=== PATIENT | male | born 1965 | race Caucasian/White ===

== ENCOUNTER 2016-12-26 14:23 | Emergency (ER) | payer BC ==
[~2016-12-26] VITALS: Ht 188 cm; Wt 99.6 kg
[2016-12-26 14:30] VITALS: BP 135/65; PULSE 86; RESP 16; TEMP 99.3; O2SAT 98
[2016-12-26] MEDS ORDERED: BACT800T5 PO (14:52)
[2016-12-26] MEDS ORDERED: PIPERACIL-TAZO 4.5 GM PREMIX 100 ML IV STA (15:39)
[2016-12-26] MEDS ORDERED: VANCOMYCIN INJ 1,500 MG in SODIUM CHLORID 0.9% 500 ML INJ 500 ML IV STA (15:39)
--- NOTE | 2016-12-26 15:47 | PD ---
HPI Chief Complaint: Skin Problem Time Seen by Provider: 15:28 Travel History International Travel<30 days: No Contact w/Intl Traveler<30days: No Traveled to known affect area: No History of Present Illness HPI This 51-year-old male is complaining of pain and swelling of his right leg. He says that Tuesday he noted some redness and swelling of the leg. He went to urgent care center and was diagnosed with a skin infection. He was given prescription for Bactrim. He has been taking the Bactrim twice daily since then. He has still been active. He has some discomfort in the leg but is not severe. He has been ambulatory. In spite of taking the Bactrim he has developed increased swelling and redness of the leg. He is also noted some tenderness along the medial aspect of the thigh. He has not had fever or chills. He does not have a history of diabetes. He is generally healthy. PFSH Past Medical History Medical History: Denies Significant Hx Immunizations Current: Yes Tetanus Vaccination: Unknown Past Surgical History Other Surgery: Yes (hernia repair as ) Social History Alcohol Use: Yes (occasional) Tobacco Use: No (never) Substance Use: No Allergies-Medications (Allergen,Severity, Reaction): Coded Allergies: No Known Allergies (Unverified , 12/26/16) Reported Meds & Prescriptions Reported Meds & Active Scripts Active Reported Bactrim DS (Sulfamethoxazole-Trimethoprim) 800-160 Mg Tab 1 Tab PO BID Review of Systems General / Constitutional: No: Fever, Chills Eyes: No: Diploplia, Blurred Vision HENT: No: Headaches, Vertigo Cardiovascular: No: Chest Pain or Discomfort, Palpitations Respiratory: No: Cough, Shortness of Breath Gastrointestinal: No: Nausea, Vomiting Genitourinary: No: Frequency Musculoskeletal: No: Myalgias Skin: Positive Rash Neurologic: No: Weakness, Dizziness Hematologic/Lymphatic: No: Easy Bruising Physical Exam Narrative GENERAL: Well-developed male SKIN: Focused skin assessment warm/dry. HEAD: Atraumatic. Normocephalic. EYES: Pupils equal and round. No scleral icterus. No injection or drainage. ENT: No nasal bleeding or discharge. Mucous membranes pink and moist. NECK: Trachea midline. No JVD. CARDIOVASCULAR: Regular rate and rhythm. No murmur appreciated. RESPIRATORY: No accessory muscle use. Clear to auscultation. Breath sounds equal bilaterally. GASTROINTESTINAL: Abdomen soft, non-tender, nondistended. Hepatic and splenic margins not palpable. MUSCULOSKELETAL: No obvious deformities. No clubbing. No cyanosis. On examining the right leg the right lower leg below the knee is erythematous and swollen. There is no palpable cord. He says there is a site anteriorly withered been some serous drainage. Homans sign is negative. NEUROLOGICAL: Awake and alert. No obvious cranial nerve deficits. Motor grossly within normal limits. Normal speech. PSYCHIATRIC: Appropriate mood and affect; insight and judgment normal. Data Data Last Documented VS Vital Signs Date Time Temp Pulse Resp B/P (MAP) Pulse Ox O2 Delivery O2 Flow Rate FiO2 12/26/16 14:30 99.3 86 16 135/65 (88) 98 Orders Orders Us Leg Venous Doppler (12/26/16 15:36) Complete Blood Count With Diff (12/26/16 15:39) Comprehensive Metabolic Panel (12/26/16 15:39) Lactic Acid Sepsis Protocol (12/26/16 15:39) Urinalysis - C+S If Indicated (12/26/16 15:39) Blood Culture (12/26/16 15:39) Iv Access Insert/Monitor (12/26/16 15:39) Piperacil-Tazo 4.5 Gm Premix (Zosyn 4.5 (12/26/16 15:39) Vancomycin Inj (Vancomycin Inj) (12/26/16 15:39) MDM Medical Decision Making Medical Screen Exam Complete: Yes Emergency Medical Condition: Yes Medical Record Reviewed: Yes Differential Diagnosis Differential includes deep vein thrombosis, cellulitis Narrative Course An ultrasound has been ordered to assess for DVT. I have ordered an initial dose of Zosyn and vancomycin. I suspect this represents cellulitis with some lymphangitis. The patient has failed BactOtis Stanley MD Dec 26, 2016 15:47
[2016-12-26 15:59] LABS: AUTOMATED NEUTROPHIL # 6.1 TH/MM3 (1.8-7.7); BASOPHIL % 0.3 % (0.0-2.0); EOSINOPHIL # 0.2 TH/MM3 (0-0.4); EOSINOPHIL % 2.1 % (0.0-4.0); HEMATOCRIT 39.6 % (39.0-51.0); HEMO FLAGS DIFF FINAL; LYMPH % 14.3 % (9.0-44.0); LYMPHOCYTE # 1.2 TH/MM3 (1.0-4.8); MEAN CELL VOLUME 89.5 FL (80.0-100.0); MEAN CORPUSCULAR HGB CONC 35.7 % (32.0-36.0); MONO % 7.1 % (0.0-8.0); NEUT % 76.2 % (16.0-70.0); PLATELET COUNT 197 TH/MM3 (150-450); RED BLOOD COUNT 4.43 MIL/MM3 (4.50-5.90); WHITE BLOOD COUNT 8.1 TH/MM3 (4.0-11.0)
[2016-12-26 16:07] LABS: CHLORIDE 103 MEQ/L (98-107); POTASSIUM 3.9 MEQ/L (3.5-5.1); SODIUM (NA) 137 MEQ/L (136-145)
[2016-12-26 16:11] LABS: ANION GAP 7 MEQ/L (5-15); BICARBONATE 27.5 MEQ/L (21.0-32.0); BLOOD UREA NITROGEN 15 MG/DL (7-18)
[2016-12-26 16:14] LABS: ALT (GPT) 32 U/L (12-78); AST (GOT) 22 U/L (15-37); GLOMERULAR FILTRATION RATE 70 ML/MIN (>89)
[2016-12-26 16:16] LABS: TOTAL BILIRUBIN ADULT 0.5 MG/DL (0.2-1.0)
[2016-12-26 16:17] LABS: ALKALINE PHOSPHATASE 57 U/L (45-117)
--- NOTE | 2016-12-26 16:40 | RADRPT ---
EXAM DATE/TIME: 12/26/2016 16:12 [facility] COMPARISON: No previous studies available for comparison. INDICATIONS : Right leg swelling. MEDICAL HISTORY : Right leg redness. Rigth leg swelling. Right leg tenderness. SURGICAL HISTORY : hernia repair. ENCOUNTER: Initial ACUITY: 3 days PAIN SCORE: 4/10 LOCATION: Right leg. TECHNIQUE: Venous ultrasound of the leg was performed from the inguinal ligament to the proximal calf. Real-sydnee e, color Doppler and spectral tracing, compression and augmentation techniques were used. FINDINGS: There is normal compressibility of the deep venous system from the inguinal region to the proximal ca lf. No echogenic clot is seen in the lumen of the common femoral, femoral, popliteal, and posterior tibial veins. There is a normal response of the venous system to proximal and distal augmentation an d respiration. CONCLUSION: Normal examination. The common femoral veins were difficult to compress I believe due to patient musc ular contraction. There is good color flow and there is no evidence of DVT elsewhere Dino Chamberlain MD on December 26, 2016 at 16:38 Board Certified Radiologist. This report was verified electronically.
[2016-12-26 16:44] LABS: BLOOD, URINE NEG (NEG); GLUCOSE,URINE NEG (NEG); KETONE, URINE NEG (NEG); NITRITE,URINE NEG (NEG)
[2016-12-26 16:47] LABS: METHOD OF COLLECTION CLEAN CATCH; URINE COLOR YELLOW (YELLW/STRAW)
[2016-12-26 16:48] LABS: COMMENT (UR) CULT NOT INDICATED; CULTURE IF INDICATED CULT NOT INDICATED; RBC, URINE 0-3 /hpf (0-3); SQUAMOUS EPITHELIAL CELL URINE 0-5 /hpf (0-5); WBC, URINE 0-2 /hpf (0-5)
[2016-12-26] MEDS ORDERED: DALBAVANCIN INJ 1,500 MG in DEXTROSE 5% IN WATE 500 ML INJ 500 ML IV STA ×2 (16:48)
[2016-12-26] MEDS ORDERED: ASP: No known hypersensitivity to Vanco, Telavancin, Dalbavancin OTHER ONE (17:00)
[2016-12-26] MEDS ORDERED: ASP: Location of Dalbavancin administration OTHER ONE (17:00)
[2016-12-26] MEDS ORDERED: ASP: Only reason for admit - IV antibiotics OTHER ONE (17:00)
[2016-12-26] MEDS ORDERED: MISCELLANEOUS PHARMACY INFORMATION XX ONE (17:00)
[2016-12-26] MEDS ORDERED: ASP: Does not meet inpatient admission criteria OTHER ONE (17:00)
--- NOTE | 2016-12-26 17:39 | PD ---
Physical Exam Narrative Patient signed out to me by Dr. Arroyo. Please see his documentation for complete details. Briefly, patient noticed some redness at the base of his knee on Tuesday. He went to an urgent care where he was prescribed Bactrim. He says he has been taking it twice a day as prescribed, but noticed that the redness and swelling got worse yesterday and today. He denies fever or chills and says it is not hurting him too much. Exam shows erythema and warmth over most of the lower leg and the inside of the right thigh. Pulses intact. Large edema of the right leg. Data Data Last Documented VS Vital Signs Date Time Temp Pulse Resp B/P (MAP) Pulse Ox O2 Delivery O2 Flow Rate FiO2 12/26/16 18:07 84 16 120/72 (88) 96 Room Air 12/26/16 14:30 99.3 Orders Orders Us Leg Venous Doppler (12/26/16 15:36) Complete Blood Count With Diff (12/26/16 15:39) Comprehensive Metabolic Panel (12/26/16 15:39) Lactic Acid Sepsis Protocol (12/26/16 15:39) Urinalysis - C+S If Indicated (12/26/16 15:39) Blood Culture (12/26/16 15:39) Iv Access Insert/Monitor (12/26/16 15:39) Piperacil-Tazo 4.5 Gm Premix (Zosyn 4.5 (12/26/16 15:39) Vancomycin Inj (Vancomycin Inj) (12/26/16 15:39) Asp:No Reaction To Dalbav/Vanc (Asp Crit (12/26/16 17:00) Asp: Does Not Meet Inpt Admit (Asp Crit: (12/26/16 17:00) Asp: Iv Antibiotics Admit Only (Asp Crit (12/26/16 17:00) Asp: Location Of Dalbav Admin (Asp Crit: (12/26/16 17:00) [facility] Information ([facility] (12/26/16 17:00) Dalbavancin Inj (Dalvance Inj) (12/26/16 16:48) Labs Laboratory Tests Test 12/26/16 15:45 12/26/16 16:40 White Blood Count 8.1 TH/MM3 Red Blood Count 4.43 MIL/MM3 Hemoglobin 14.1 GM/DL Hematocrit 39.6 % Mean Corpuscular Volume 89.5 FL Mean Corpuscular Hemoglobin 32.0 PG Mean Corpuscular Hemoglobin Concent 35.7 % Red Cell Distribution Width 12.0 % Platelet Count 197 TH/MM3 Mean Platelet Volume 7.8 FL Neutrophils (%) (Auto) 76.2 % Lymphocytes (%) (Auto) 14.3 % Monocytes (%) (Auto) 7.1 % Eosinophils (%) (Auto) 2.1 % Basophils (%) (Auto) 0.3 % Neutrophils # (Auto) 6.1 TH/MM3 Lymphocytes # (Auto) 1.2 TH/MM3 Monocytes # (Auto) 0.6 TH/MM3 Eosinophils # (Auto) 0.2 TH/MM3 Basophils # (Auto) 0.0 TH/MM3 CBC Comment DIFF FINAL Differential Comment Blood Urea Nitrogen 15 MG/DL Creatinine 1.10 MG/DL Random Glucose 93 MG/DL Total Protein 7.2 GM/DL Albumin 3.8 GM/DL Calcium Level 8.7 MG/DL Alkaline Phosphatase 57 U/L Aspartate Amino Transf (AST/SGOT) 22 U/L Alanine Aminotransferase (ALT/SGPT) 32 U/L Total Bilirubin 0.5 MG/DL Sodium Level 137 MEQ/L Potassium Level 3.9 MEQ/L Chloride Level 103 MEQ/L Carbon Dioxide Level 27.5 MEQ/L Anion Gap 7 MEQ/L Estimat Glomerular Filtration Rate 70 ML/MIN Lactic Acid Level 0.7 mmol/L Urine Collection Type CLEAN CATCH Urine Color YELLOW Urine Turbidity CLEAR Urine pH 6.0 Urine Specific Taylor 1.022 Urine Protein NEG mg/dL Urine Glucose (UA) NEG mg/dL Urine Ketones NEG mg/dL Urine Occult Blood NEG Urine Nitrite NEG Urine Bilirubin NEG Urine Leukocyte Esterase NEG Urine RBC 0-3 /hpf Urine WBC 0-2 /hpf Urine Squamous Epithelial Cells 0-5 /hpf Microscopic Urinalysis Comment CULT NOT INDICATED Urine Collection Time 16:40 MDM Supervised Visit with BECKY: No Narrative Course US shows no evidence of DVT. Labs show no acute abnormalities, WBC count is within normal limits. Vitals are within normal limits. Patient will be given Dalvance. He is given strict return precautions and advised to return for any worsening symptoms or if the cellulitis does not improve over the next few days. He and his are comfortable with this plan. Diagnosis Primary Impression: Cellulitis of leg Qualified Codes: L03.115 - Cellulitis of right lower limb Patient Instructions: Cellulitis (ED), General Instructions Additional Instruction: Return if the redness or swelling worsen at any time. Return if you are feeling worse. Return if the symptoms to not begin to improve over the next few days. Follow up with a primary care doctor. Take Tylenol or Ibuprofen as needed for pain. Disposition: 01 DISCHARGE HOME Condition: Stable Mariana Bell MD Dec 26, 2016 17:39
[2016-12-26 18:07] VITALS: BP 120/72; PULSE 84; RESP 16; O2SAT 96
[2016-12-26 19:09] VITALS: BP 125/78; TEMP 98.1
== END 2016-12-26 19:19 | disposition home or self-care (01) ==
LOC: PHED 14:23
DX: L03.115 Cellulitis of right lower limb (principal)
CPT/HCPCS: 80053; 81001; 83605; 85025; 87040; 93971; 96365; 99285; J0875; J7060

== ENCOUNTER 2016-12-28 22:42 | Inpatient (IN) | payer BC ==
[~2016-12-28] VITALS: Ht 188 cm; Wt 97.3 kg
[~2016-12-28 22:42] MED LIST: BACT800T5 PO
[2016-12-28 22:46] VITALS: BP 132/73; PULSE 91; RESP 18; TEMP 99.1; O2SAT 95
[2016-12-29] VITALS (8 sets, daily range): BP systolic 119–153; BP diastolic 70–92; PULSE 72–83; RESP 20; TEMP 97.8–98.3; O2SAT 93–98
[2016-12-29 02:34] LABS: AUTOMATED NEUTROPHIL # 4.1 TH/MM3 (1.8-7.7); BASOPHIL % 0.4 % (0.0-2.0); EOSINOPHIL # 0.2 TH/MM3 (0-0.4); EOSINOPHIL % 3.5 % (0.0-4.0); HEMATOCRIT 39.9 % (39.0-51.0); HEMO FLAGS DIFF FINAL; LYMPHOCYTE # 1.7 TH/MM3 (1.0-4.8); MEAN CELL VOLUME 90.7 FL (80.0-100.0); MEAN CORPUSCULAR HEMOGLOBIN 31.2 PG (27.0-34.0); MEAN CORPUSCULAR HGB CONC 34.4 % (32.0-36.0); MONO % 9.9 % (0.0-8.0); NEUT % 61.2 % (16.0-70.0); PLATELET COUNT 258 TH/MM3 (150-450); RED CELL DISTRIBUTION WIDTH 12.2 % (11.6-17.2); WHITE BLOOD COUNT 6.7 TH/MM3 (4.0-11.0)
[2016-12-29 02:54] LABS: POTASSIUM 3.5 MEQ/L (3.5-5.1)
[2016-12-29 02:57] LABS: BICARBONATE 30.6 MEQ/L (21.0-32.0)
--- NOTE | 2016-12-29 03:10 | RADRPT ---
EXAM DATE/TIME: 12/29/2016 02:23 [facility] COMPARISON: No previous studies available for comparison. INDICATIONS : Right lower leg pain and swelling. MEDICAL HISTORY : None. SURGICAL HISTORY : None. ENCOUNTER: Initial ACUITY: 1 week PAIN SCORE: 6/10 LOCATION: Right lower leg. FINDINGS: Soft tissues of the right leg appear diffusely swollen and edematous. No radiopaque foreign body. No acute fracture or subluxation. CONCLUSION: Nonspecific soft tissue swelling without an acute bony abnormality. Gavin Hart MD on December 29, 2016 at 3:08 Board Certified Radiologist. This report was verified electronically.
[2016-12-29] MEDS ORDERED: VANCOMYCIN INJ 1,500 MG in SODIUM CHLORID 0.9% 500 ML INJ 500 ML IV ONE (04:15)
[2016-12-29] MEDS ORDERED: NALOXONE HCL 0.4 MG/ML AMP IV PUSH PRN (04:15)
[2016-12-29] MEDS ORDERED: Vancomycin Consult Pharmacy 1 EA OTHER SCH ×2 (04:15→08:45)
[2016-12-29] MEDS ORDERED: SODIUM CHLORIDE 0.9% FLUSH 10 ML FLUSH IV FLUSH PRN (04:15)
[2016-12-29] MEDS ORDERED: PIPERACIL-TAZO 4.5 GM PREMIX 100 ML IV ONE (04:15)
--- NOTE | 2016-12-29 04:19 | PD ---
HPI Chief Complaint: Skin Problem Time Seen by Provider: 02:04 Travel History International Travel<30 days: No Contact w/Intl Traveler<30days: No Traveled to known affect area: No History of Present Illness HPI 51-year-old male presents to the emergency department by private transportation for complaint of painful swelling below his right knee. Patient started out with area of possible pimple went to urgent care was started on antibiotic Bactrim should brief episode of improvement and started to have worsening of symptoms. Patient was seen in the emergency department and given dalvance but since then has continued to have no improvement has developed shaking chills and worsening erythema and swelling. Patient denies diabetes. Patient presents due to failed outpatient therapy and worsening symptoms. Patient is unable to identify exacerbating or alleviating factors. Patient estimates pain is 5/10 in intensity. PFSH Past Medical History Narrative Medical Immunizations current, herniorrhaphy, no tobacco use; nursing notes reviewed Medical History: Denies Significant Hx Diminished Hearing: No Immunizations Current: Yes Tetanus Vaccination: Unknown Influenza Vaccination: No Past Surgical History Other Surgery: Yes (hernia repair as ) Social History Alcohol Use: Yes (occasional) Tobacco Use: No (never) Substance Use: No Allergies-Medications (Allergen,Severity, Reaction): Coded Allergies: No Known Allergies (Unverified , 12/28/16) Reported Meds & Prescriptions Reported Meds & Active Scripts Active Review of Systems Except as stated in HPI: all other systems reviewed are Neg Physical Exam Narrative GENERAL: Well-developed well-nourished male in no acute distress no respiratory distress SKIN: Warm and dry. HEAD: Normocephalic. EYES: No scleral icterus. No injection or drainage. NECK: Supple, trachea midline. No JVD or lymphadenopathy. CARDIOVASCULAR: Regular rate and rhythm without murmurs, gallops, or rubs. RESPIRATORY: Breath sounds equal bilaterally. No accessory muscle use. GASTROINTESTINAL: Abdomen soft, non-tender, nondistended. MUSCULOSKELETAL: No cyanosis, or edema. Attention right lower extremity just overlying the tibial tuberosity and distally there is no area of erythema with superficial pustule no fluctuance no ascending erythema no knee joint pain no ballotable effusion no ascending erythema no right groin lymphadenopathy distally extremity service tendon intact BACK: Nontender without obvious deformity. No CVA tenderness. Data Data Last Documented VS Orders Orders Basic Metabolic Panel (Bmp) (12/29/16 02:04) Complete Blood Count With Diff (12/29/16 02:04) Blood Culture (12/29/16 02:04) Wound Culture And Gram Stain (12/29/16 02:04) Iv Access Insert/Monitor (12/29/16 02:04) Lactic Acid (12/29/16 02:04) Tibia/Fibula (Ap/Lat) (12/29/16 ) Vancomycin Inj (Vancomycin Inj) (12/29/16 04:15) Piperacil-Tazo 4.5 Gm Premix (Zosyn 4.5 (12/29/16 04:15) Admit To Inpatient (12/29/16 ) Vital Signs (Adult) Q4H (12/29/16 04:14) Activity Oob With Assistance (12/29/16 04:14) Electrical Design Engineer / Telemetry .CONTINUOUS (12/29/16 04:14) Diet Heart Healthy (12/29/16 Breakfast) Sodium Chloride 0.9% Flush (Ns Flush) (12/29/16 04:15) Sodium Chloride 0.9% Flush (Ns Flush) (12/29/16 09:00) Basic Metabolic Panel (Bmp) (12/30/16 06:00) Complete Blood Count With Diff (12/30/16 06:00) Case Management Consult (12/29/16 04:14) Naloxone Inj (Narcan Inj) (12/29/16 04:15) Inpatient Certification (12/29/16 ) Consult Infectious Disease (12/29/16 ) Vancomycin Consult Pharmacy (Vancomycin (12/29/16 04:15) Piperacil-Tazo 4.5 Gm Premix (Zosyn 4.5 (12/29/16 12:00) Admit Order (Ed Use Only) (12/29/16 ) ^ Saline Lock (12/29/16 04:17) Resp Oxygen Kevin C Titrat 1-4 L (12/29/16 ) Notify Dr: Other (12/29/16 04:17) Sodium Chloride 0.9% Flush (Ns Flush) (12/29/16 09:00) Sodium Chloride 0.9% Flush (Ns Flush) (12/29/16 04:30) Labs Laboratory Tests Test 12/29/16 02:20 White Blood Count 6.7 TH/MM3 Red Blood Count 4.40 MIL/MM3 Hemoglobin 13.7 GM/DL Hematocrit 39.9 % Mean Corpuscular Volume 90.7 FL Mean Corpuscular Hemoglobin 31.2 PG Mean Corpuscular Hemoglobin Concent 34.4 % Red Cell Distribution Width 12.2 % Platelet Count 258 TH/MM3 Mean Platelet Volume 7.2 FL Neutrophils (%) (Auto) 61.2 % Lymphocytes (%) (Auto) 25.0 % Monocytes (%) (Auto) 9.9 % Eosinophils (%) (Auto) 3.5 % Basophils (%) (Auto) 0.4 % Neutrophils # (Auto) 4.1 TH/MM3 Lymphocytes # (Auto) 1.7 TH/MM3 Monocytes # (Auto) 0.7 TH/MM3 Eosinophils # (Auto) 0.2 TH/MM3 Basophils # (Auto) 0.0 TH/MM3 CBC Comment DIFF FINAL Differential Comment Blood Urea Nitrogen 21 MG/DL Creatinine 1.00 MG/DL Random Glucose 102 MG/DL Calcium Level 9.2 MG/DL Sodium Level 138 MEQ/L Potassium Level 3.5 MEQ/L Chloride Level 102 MEQ/L Carbon Dioxide Level 30.6 MEQ/L Anion Gap 5 MEQ/L Estimat Glomerular Filtration Rate 78 ML/MIN Lactic Acid Level 0.6 mmol/L C-Reactive Protein 3.50 MG/DL MDM Medical Decision Making Medical Screen Exam Complete: Yes Emergency Medical Condition: Yes Medical Record Reviewed: Yes Interpretation(s) Last Impressions Tibia/Fibula X-Ray 12/29/16 0000 Signed Impressions: Service Date/Time: Thursday, December 29, 2016 02:23 - CONCLUSION: Nonspecific soft tissue swelling without an acute bony abnormality. Gavin aHrt MD CBC & BMP Diagram 12/29/16 02:20 Calcium Level 9.2 Differential Diagnosis Cellulitis, abscess, failed outpatient therapy, osteomyelitis; no septic arthritis no necrotizing fasciitis Narrative Course IV access obtained specimens collected and sent for resulting IV antibiotics administered x-ray of the lower extremity performed X-ray reveals no acute abnormality no acute bony abnormalities Patient is feel outpatient therapy and will be admitted for ongoing IV antibiotics Patient agreeable to plan discussed with on-call [facility] Physician Communication Physician Communication discussed with Dr Ceballos --admit will obtain ID consult Diagnosis Primary Impression: Cellulitis of right lower extremity Additional Impression: Failure of outpatient treatment Admitting Information Admitting Physician Requests: Admit Scripts Doxycycline Hyclate (Doxycycline Hyclate) 100 Mg Cap 100 MG PO BID for Infection, #20 CAP 0 Refills Prov: Kailey Marshall MD 12/31/16 Joan Page MD Dec 29, 2016 04:18
[2016-12-29] MEDS ORDERED: SODIUM CHLORIDE 0.9% FLUSH 10 ML FLUSH IVF PRN (04:30)
[2016-12-29] MEDS ORDERED: SODIUM CHLORIDE 0.9% FLUSH 10 ML FLUSH IV FLUSH SCH (09:00)
[2016-12-29] MEDS: SODIUM CHLORIDE 0.9% FLUSH 10 ML FLUSH IV FLUSH SCH ×2 (09:28→20:28)
--- NOTE | 2016-12-29 11:45 | HHI.HP ---
[facility] No Primary Care Physician Admission Diagnosis RLE cellulitis Diagnoses: (1) Cellulitis of right lower extremity (2) Failure of outpatient treatment Travel History International Travel<30 Days: No Contact w/Intl Traveler <30 Da: No Traveled to Known Affected Are: No History of Present Illness This is a pleasant 51-year-old male with no significant past medical history who one week ago noticed a painful pimple below his right knee. The area started to grow in size and was associated with erythema. He went to an urgent care where they prescribed Bactrim. Initially improved but then the erythema started to worsen. He presented to an emergency department 5 days ago where he states he received a shot dalbavancin. That evening he started to develop shaking chills. The next day the pimple started to drain fluid. Yesterday he started to develop erythema and swelling of his leg and spreading up towards his medial thigh so he presented to the emergency department. He denies any fevers. Denies any sick contacts. Denies any injuries. He states he used to get abscesses when he was a child. Review of Systems Constitutional: DENIES: Fever, Chills Respiratory: DENIES: Cough, Shortness of breath Cardiovascular: DENIES: Chest pain, Palpitations Gastrointestinal: DENIES: Abdominal pain, Vomiting Genitourinary: DENIES: Urgency, Dysuria Musculoskeletal: DENIES: Back pain, Neck pain Integumentary: DENIES: Pruritus Hematologic/lymphatic: DENIES: Lymphadenopathy Neurologic: DENIES: Abnormal gait, Headache Psychiatric: DENIES: Anxiety, Confusion Past Family Social History Past Medical History None Allergies: Coded Allergies: No Known Allergies (Unverified , 12/28/16) Family History Reviewed and noncontributory Social History No alcohol tobacco or drug use Physical Exam Vital Signs Vital Signs Date Time Temp Pulse Resp B/P (MAP) Pulse Ox O2 Delivery O2 Flow Rate FiO2 12/29/16 08:06 98.1 73 20 130/92 (105) 95 12/29/16 07:38 76 18 119/70 (86) 98 12/29/16 06:00 98.3 72 20 153/89 (110) 98 12/29/16 02:48 20 12/28/16 22:46 99.1 91 18 132/73 (92) 95 12/28/16 22:46 95 21 Physical Exam GENERAL: Well-nourished, well-developed middle-aged male patient. SKIN: Warm and dry. HEAD: Normocephalic. EYES: No scleral icterus. No injection or drainage. NECK: Supple, trachea midline. No JVD or lymphadenopathy. CARDIOVASCULAR: Regular rate and rhythm without murmurs, gallops, or rubs. RESPIRATORY: Breath sounds equal bilaterally. No accessory muscle use. GASTROINTESTINAL: Abdomen soft, non-tender, nondistended. EXTREMITIES: Patient has a resolving abscess inferior to the right knee with minimal surrounding erythema with mild induration and no fluctuance, trace edema of the right lower extremity. NEUROLOGICAL: Awake, alert, and oriented x 3. Non-focal. Laboratory Laboratory Tests Test 12/29/16 02:20 White Blood Count 6.7 Red Blood Count 4.40 Hemoglobin 13.7 Hematocrit 39.9 Mean Corpuscular Volume 90.7 Mean Corpuscular Hemoglobin 31.2 Mean Corpuscular Hemoglobin Concent 34.4 Red Cell Distribution Width 12.2 Platelet Count 258 Mean Platelet Volume 7.2 Neutrophils (%) (Auto) 61.2 Lymphocytes (%) (Auto) 25.0 Monocytes (%) (Auto) 9.9 Eosinophils (%) (Auto) 3.5 Basophils (%) (Auto) 0.4 Neutrophils # (Auto) 4.1 Lymphocytes # (Auto) 1.7 Monocytes # (Auto) 0.7 Eosinophils # (Auto) 0.2 Basophils # (Auto) 0.0 CBC Comment DIFF FINAL Differential Comment Blood Urea Nitrogen 21 Creatinine 1.00 Random Glucose 102 Calcium Level 9.2 Sodium Level 138 Potassium Level 3.5 Chloride Level 102 Carbon Dioxide Level 30.6 Anion Gap 5 Estimat Glomerular Filtration Rate 78 Lactic Acid Level 0.6 Date/Time Source Procedure Growth Status 12/29/16 02:20 Blood Peripheral Aerobic Blood Culture Pending Received 12/29/16 02:20 Blood Peripheral Anaerobic Blood Culture Pending Received 12/29/16 02:35 Wound Knee Gram Stain Pending Received 12/29/16 02:35 Wound Knee Wound Culture Pending Received Result Diagram: 12/29/160 12/29/16 0220 Imaging Last Impressions Tibia/Fibula X-Ray 12/29/16 0000 Signed Impressions: Service Date/Time: Thursday, December 29, 2016 02:23 - CONCLUSION: Nonspecific soft tissue swelling without an acute bony abnormality. MD Hans Spivey VTE Risk Assessment Hans VTE Risk Assessment: No/Low Risk (score <= 1) Caprini Risk Assessment Model Point Value = 1 Point Value = 2 Point Value = 3 Point Value = 5 Age 41-60 Minor surgery BMI > 25 kg/m2 Swollen legs Varicose veins or History of unexplained or recurrent spontaneous Oral contraceptives or hormone replacement Sepsis (< 1 month) Serious lung disease, including pneumonia (< 1 month) Abnormal pulmonary function Acute myocardial infarction Congestive heart failure (< 1 month) History of inflammatory bowel disease Medical patient at bed rest Age 61-74 Arthroscopic surgery Major open surgery (> 45 min) Laparoscopic surgery (> 45 min) Malignancy Confined to bed (> 72 hours) Immobilizing plaster cast Central venous access Age >= 75 History of VTE Family history of VTE Factor V Leiden Prothrombin [id number] Lupus anticoagulant Anticardiolipin antibodies Elevated serum homocysteine Heparin-induced thrombocytopenia Other congenital or acquired thrombophilia Stroke (< 1 month) Elective arthroplasty Hip, pelvis, or leg fracture Acute spinal cord injury (< 1 month) Prophylaxis Regimen Total Risk Factor Score Risk Level Prophylaxis Regimen 0-1 Low Early ambulation 2 Moderate Order ONE of the following: *Sequential Compression Device (SCD) *Heparin 5000 units SQ BID 3-4 Higher Order ONE of the following medications: *Heparin 5000 units SQ TID *Enoxaparin/Lovenox 40 mg SQ daily (WT < 150 kg, CrCl > 30 mL/min) *Enoxaparin/Lovenox 30 mg SQ daily (WT < 150 kg, CrCl > 10-29 mL/min) *Enoxaparin/Lovenox 30 mg SQ BID (WT < 150 kg, CrCl > 30 mL/min) AND/OR *Sequential Compression Device (SCD) 5 or more Highest Order ONE of the following medications: *Heparin 5000 units SQ TID (Preferred with Epidurals) *Enoxaparin/Lovenox 40 mg SQ daily (WT < 150 kg, CrCl > 30 mL/min) *Enoxaparin/Lovenox 30 mg SQ daily (WT < 150 kg, CrCl > 10-29 mL/min) *Enoxaparin/Lovenox 30 mg SQ BID (WT < 150 kg, CrCl > 30 mL/min) AND *Sequential Compression Device (SCD) Assessment and Plan Assessment and Plan -Abscess and cellulitis of the pretibial area of the right lower extremity. Does not appear to involve the joint he has full range of motion. He did fail outpatient treatment with Bactrim and dalbavancin. He is now admitted for IV antibiotics with vancomycin and ampicillin. Infectious disease is following. The abscess appears to be resolving and not in need of incision and drainage at this time however the site will be monitored. -DVT prophylaxis with ambulation Kailey Marshall MD Dec 29, 2016 11:45
[2016-12-29] MEDS ORDERED: PIPERACIL-TAZO 4.5 GM PREMIX 100 ML IV SCH (12:00)
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
[2016-12-29] MEDS: AMPICILLIN-SULBACTAM INJ 3 GM in SODIUM CHLORIDE 0.9% INJ 100 ML IV SCH ×2 (13:07→18:32)
[2016-12-29] MEDS: VANCOMYCIN INJ 1,750 MG in SODIUM CHLORID 0.9% 500 ML INJ 500 ML IV SCH (16:00)
[2016-12-30] VITALS: BP 135/73; PULSE 71; RESP 20; TEMP 97.5; O2SAT 95
[2016-12-30] MEDS: AMPICILLIN-SULBACTAM INJ 3 GM in SODIUM CHLORIDE 0.9% INJ 100 ML IV SCH ×4 (00:14→18:15)
[2016-12-30] MEDS: VANCOMYCIN INJ 1,750 MG in SODIUM CHLORID 0.9% 500 ML INJ 500 ML IV SCH ×2 (04:35→16:06)
[2016-12-30 05:28] LABS: BASOPHIL % 0.2 % (0.0-2.0); EOSINOPHIL # 0.3 TH/MM3 (0-0.4); EOSINOPHIL % 3.9 % (0.0-4.0); HEMO FLAGS DIFF FINAL; LYMPH % 20.4 % (9.0-44.0); LYMPHOCYTE # 1.5 TH/MM3 (1.0-4.8); MEAN CELL VOLUME 90.1 FL (80.0-100.0); MEAN CORPUSCULAR HEMOGLOBIN 31.3 PG (27.0-34.0); MEAN CORPUSCULAR HGB CONC 34.7 % (32.0-36.0); MONO % 8.1 % (0.0-8.0); NEUT % 67.4 % (16.0-70.0); PLATELET COUNT 249 TH/MM3 (150-450); RED BLOOD COUNT 4.43 MIL/MM3 (4.50-5.90); RED CELL DISTRIBUTION WIDTH 11.8 % (11.6-17.2); WHITE BLOOD COUNT 7.4 TH/MM3 (4.0-11.0)
[2016-12-30 08:00] VITALS: BP 124/82; PULSE 74; RESP 18; TEMP 97.1; O2SAT 97
[2016-12-30] MEDS: SODIUM CHLORIDE 0.9% FLUSH 10 ML FLUSH IV FLUSH SCH ×2 (09:08→21:00)
[2016-12-30 12:00] VITALS: BP 120/76; PULSE 77; RESP 18; TEMP 98.2; O2SAT 96
--- NOTE | 2016-12-30 13:13 | HHI.PR ---
Subjective Remarks Patient states his knee feels better, no fever or chills. He notices enlarging blister on his right knee. Objective Vitals Vital Signs Date Time Temp Pulse Resp B/P (MAP) Pulse Ox O2 Delivery O2 Flow Rate FiO2 12/30/16 12:00 98.2 77 18 120/76 (91) 96 12/30/16 08:00 97.1 74 18 124/82 (96) 97 12/30/16 00:00 97.5 71 20 135/73 (93) 95 12/29/16 21:18 96 21 12/29/16 20:00 97.8 83 20 128/85 (99) 96 12/29/16 16:00 98.3 81 20 126/82 (97) 94 I/O 12/29/16 12/29/16 12/29/16 12/30/16 12/30/16 12/30/16 07:00 15:00 23:00 07:00 15:00 23:00 Intake Total 100 ml 600 ml 1515 ml 556 ml Balance 100 ml 600 ml 1515 ml 556 ml Intake Oral 1000 ml IV Total 100 ml 600 ml 515 ml 556 ml # Voids 5 # Bowel Movements 0 Result Diagram: 12/30/16 0450 12/30/16 045 Objective Remarks GENERAL: Well-nourished, well-developed middle-aged male patient. SKIN: Warm and dry. HEAD: Normocephalic. EYES: No scleral icterus. No injection or drainage. NECK: Supple, trachea midline. No JVD or lymphadenopathy. CARDIOVASCULAR: Regular rate and rhythm without murmurs, gallops, or rubs. RESPIRATORY: Breath sounds equal bilaterally. No accessory muscle use. GASTROINTESTINAL: Abdomen soft, non-tender, nondistended. EXTREMITIES: Patient has a resolving abscess inferior to the right knee with minimal surrounding erythema with mild induration there is now a 2 x 2 centimeter fluid-filled blister, edema of the lower extremity has resolved. NEUROLOGICAL: Awake, alert, and oriented x 3. Non-focal. A/P Problem List: (1) Cellulitis of right lower extremity ICD Code: L03.115 - Cellulitis of right lower limb Status: Acute (2) Failure of outpatient treatment ICD Code: Z78.9 - Other specified health status Status: Acute Assessment and Plan -Abscess and cellulitis of the pretibial area of the right lower extremity. Does not appear to involve the joint he has full range of motion. He did fail outpatient treatment with Bactrim and dalbavancin. He is now admitted for IV antibiotics with vancomycin and ampicillin. Infectious disease is following. He has a small pus filled blister over the right knee which he is requesting to be divided. Lidocaine and an abscess I&D kit ordered to bedside. -DVT prophylaxis with ambulation Kialey Marshall MD Dec 30, 2016 13:13
[2016-12-30] MEDS ORDERED: LIDOCAINE HCL 1% 50 ML VIAL INFIL ONE (14:00)
[2016-12-30] MEDS ORDERED: PHARMACY ORDERED LAB ONE (15:45)
[2016-12-30 16:00] VITALS: BP 136/80; PULSE 91; RESP 18; TEMP 98.3; O2SAT 95
[2016-12-30] MEDS ORDERED: PIPERACILLIN/TAZ 2.25 GM VIAL 2.25 GM in SODIUM CHLORIDE 0.9% INJ 50 ML IV ONE (18:00)
[2016-12-30] MEDS ORDERED: PIPERACILLIN/TAZ 3.375 GM VIAL 3.375 GM in SODIUM CHLORIDE 0.9% INJ 50 ML IV ONE (18:00)
[2016-12-30 20:00] VITALS: BP 123/82; PULSE 87; RESP 20; TEMP 98.2; O2SAT 95
[2016-12-31] VITALS: BP 115/75; PULSE 73; RESP 18; TEMP 98; O2SAT 94
[2016-12-31] MEDS: AMPICILLIN-SULBACTAM INJ 3 GM in SODIUM CHLORIDE 0.9% INJ 100 ML IV SCH ×2 (00:02→06:32)
[2016-12-31] MEDS: VANCOMYCIN INJ 1,750 MG in SODIUM CHLORID 0.9% 500 ML INJ 500 ML IV SCH (03:54)
[2016-12-31 04:00] VITALS: BP 126/78; PULSE 73; RESP 20; TEMP 98.3; O2SAT 93
[2016-12-31] MEDS: SODIUM CHLORIDE 0.9% FLUSH 10 ML FLUSH IV FLUSH SCH (07:59)
[2016-12-31 08:00] VITALS: BP 135/88; PULSE 73; RESP 16; TEMP 97.2; O2SAT 93
--- NOTE | 2016-12-31 10:15 | HHI.IDPN ---
Subjective Subjective Remarks S/p I & D of rt anterior knee abscess No fevers No pain Leg is better Antibiotics IV Vancomycin and Unasyn Lines Peripheral Past Medical History None significant Past Surgical History None Allergies: Coded Allergies: No Known Allergies (Unverified , 12/28/16) Review of Systems Constitutional Constitutional Remarks No fever, chills Objective . Vital Signs Date Time Temp Pulse Resp B/P (MAP) Pulse Ox O2 Delivery O2 Flow Rate FiO2 12/31/16 08:00 97.2 73 16 135/88 (104) 93 12/31/16 04:00 98.3 73 20 126/78 (94) 93 12/31/16 00:00 98.0 73 18 115/75 (88) 94 12/30/16 20:00 98.2 87 20 123/82 (96) 95 12/30/16 16:00 98.3 91 18 136/80 (98) 95 12/30/16 12:00 98.2 77 18 120/76 (91) 96 . Laboratory Tests Test 12/30/16 04:50 White Blood Count 7.4 TH/MM3 Red Blood Count 4.43 MIL/MM3 Hemoglobin 13.9 GM/DL Hematocrit 40.0 % Mean Corpuscular Volume 90.1 FL Mean Corpuscular Hemoglobin 31.3 PG Mean Corpuscular Hemoglobin Concent 34.7 % Red Cell Distribution Width 11.8 % Platelet Count 249 TH/MM3 Mean Platelet Volume 7.1 FL Neutrophils (%) (Auto) 67.4 % Lymphocytes (%) (Auto) 20.4 % Monocytes (%) (Auto) 8.1 % Eosinophils (%) (Auto) 3.9 % Basophils (%) (Auto) 0.2 % Neutrophils # (Auto) 5.0 TH/MM3 Lymphocytes # (Auto) 1.5 TH/MM3 Monocytes # (Auto) 0.6 TH/MM3 Eosinophils # (Auto) 0.3 TH/MM3 Basophils # (Auto) 0.0 TH/MM3 CBC Comment DIFF FINAL Differential Comment Laboratory Tests Test 12/30/16 04:50 Blood Urea Nitrogen 13 MG/DL Creatinine 0.92 MG/DL Random Glucose 121 MG/DL Calcium Level 8.5 MG/DL Sodium Level 141 MEQ/L Potassium Level 4.0 MEQ/L Chloride Level 105 MEQ/L Carbon Dioxide Level 30.0 MEQ/L Anion Gap 6 MEQ/L Estimat Glomerular Filtration Rate 86 ML/MIN Microbiology Date/Time Source Procedure Growth Status 12/29/16 02:20 Blood Peripheral Aerobic Blood Culture - Preliminary NO GROWTH IN 1 DAY Resulted 12/29/16 02:20 Blood Peripheral Anaerobic Blood Culture - Preliminary NO GROWTH IN 1 DAY Resulted 12/29/16 02:10 Blood Peripheral Aerobic Blood Culture - Preliminary NO GROWTH IN 1 DAY Resulted 12/29/16 02:10 Blood Peripheral Anaerobic Blood Culture - Preliminary NO GROWTH IN 1 DAY Resulted 12/29/16 02:35 Wound Knee Gram Stain - Final Resulted 12/29/16 02:35 Wound Culture - Preliminary Staphylococcus Aureus Resulted Physical Exam GENERAL: This is a well-nourished, well-developed patient, in no apparent distress. SKIN: Erythema localized around drained abscess. Anterior knee - a 1 1/2 inch lesion which is eccymotic with incision and some bloody drainage HEAD: Atraumatic. Normocephalic. No temporal or scalp tenderness. EYES: Pupils equal round and reactive. Extraocular motions intact. No scleral icterus. No injection or drainage. ENT: Nose without bleeding, purulent drainage or septal hematoma. Throat without erythema, tonsillar hypertrophy or exudate. Uvula midline. Airway patent. NECK: Trachea midline. No JVD or lymphadenopathy. Supple, nontender, no meningeal signs. CARDIOVASCULAR: Regular rate and rhythm without murmurs, gallops, or rubs. RESPIRATORY: Clear to auscultation. Breath sounds equal bilaterally. No wheezes , rales, or rhonchi. GASTROINTESTINAL: Abdomen soft, non-tender, nondistended. No hepato-splenomegaly , or palpable masses. No guarding. MUSCULOSKELETAL: Rt leg cellulitis resolved on thigh - and ankle a NEUROLOGICAL: Awake and alert. Cranial nerves II through XII intact. Motor and sensory grossly within normal limits. Five out of 5 muscle strength in all muscle groups. Assessment & Plan Diagnosis: (1) Cellulitis of right lower extremity ICD Codes: L03.115 - Cellulitis of right lower limb Status: Acute Plan: Abscess had I & D Wound culture with Staph aureus Clinically improved Depending on susceptibility - patient can be changed to PO antibiotics and discharged today (2) Failure of outpatient treatment ICD Codes: Z78.9 - Other specified health status Status: Acute Rossy Del Cid MD Dec 31, 2016 10:15
[2016-12-31] MEDS ORDERED: DOXY100C PO (11:18)
--- NOTE | 2016-12-31 11:25 | HHI.DS ---
Discharge Summary Admission Date Dec 29, 2016 at 04:18 Discharge Date: Dec 31, 2016 Admitting Diagnosis RLE cellulitis (1) Cellulitis of right lower extremity ICD Code: L03.115 - Cellulitis of right lower limb Status: Acute (2) Failure of outpatient treatment ICD Code: Z78.9 - Other specified health status Status: Acute Procedures I&D of small abscess right pretibial area Brief History - From Admission This is a pleasant 51-year-old male with no significant past medical history who one week ago noticed a painful pimple below his right knee. The area started to grow in size and was associated with erythema. He went to an urgent care where they prescribed Bactrim. Initially improved but then the erythema started to worsen. He presented to an emergency department 5 days ago where he states he received a shot dalbavancin. That evening he started to develop shaking chills. The next day the pimple started to drain fluid. Yesterday he started to develop erythema and swelling of his leg and spreading up towards his medial thigh so he presented to the emergency department. He denies any fevers. Denies any sick contacts. Denies any injuries. He states he used to get abscesses when he was a child. CBC/BMP: 12/30/16 0450 12/30/16 0450 Significant Findings Laboratory Tests Test 12/29/16 02:20 12/30/16 04:50 12/30/16 15:55 Red Blood Count 4.40 MIL/MM3 (4.50-5.90) 4.43 MIL/MM3 (4.50-5.90) Monocytes (%) (Auto) 9.9 % (0.0-8.0) 8.1 % (0.0-8.0) Blood Urea Nitrogen 21 MG/DL (7-18) Estimat Glomerular Filtration Rate 78 ML/MIN (>89) 86 ML/MIN (>89) C-Reactive Protein 3.50 MG/DL (0.00-0.30) Random Glucose 121 MG/DL (74-106) Vancomycin Level Trough 14.3 MCG/ML (5.0-10.0) PE at Discharge GENERAL: Well-nourished, well-developed middle-aged male patient. SKIN: Warm and dry. HEAD: Normocephalic. EYES: No scleral icterus. No injection or drainage. NECK: Supple, trachea midline. No JVD or lymphadenopathy. CARDIOVASCULAR: Regular rate and rhythm without murmurs, gallops, or rubs. RESPIRATORY: Breath sounds equal bilaterally. No accessory muscle use. GASTROINTESTINAL: Abdomen soft, non-tender, nondistended. EXTREMITIES: Patient has a resolving abscess inferior to the right knee with minimal surrounding erythema with mild induration there is now a 2 x 2 centimeter fluid-filled blister, edema of the lower extremity has resolved. NEUROLOGICAL: Awake, alert, and oriented x 3. Non-focal. Hospital Course -Abscess and cellulitis of the pretibial area of the right lower extremity. much improved. underwent I&D of small abscess/blister on 12/30. cultures +staph aureus sensitive to doxycycline. appreciate ID input. DC home with PO doxycyline today. Pt Condition on Discharge: Stable Discharge Disposition: Discharge Home Discharge Time: <= 30 minutes Discharge Instructions DIET: Follow Instructions for: As Tolerated, No Restrictions Activities you can perform: Regular-No Restrictions Follow up Referrals: PCP Follow-up - 1 Week New Medications: Doxycycline Hyclate (Doxycycline Hyclate) 100 Mg Cap 100 MG PO BID for Infection, #20 CAP 0 Refills Kailey Marshall MD Dec 31, 2016 11:25
[2016-12-31 11:32] VITALS: BP 118/78; PULSE 83; RESP 16; TEMP 96.4; O2SAT 94
== END 2016-12-31 13:28 | disposition home or self-care (01) | DRG 603 ==
LOC: PHED 22:42 → PHEDA 12-29 04:18 → PH3B 12-29 07:25
PROVIDERS: ADMIT Family Medicine; ATTEND Family Medicine
PROC: 0H9KXZZ Drainage of Right Lower Leg Skin, External Approach (ICD-10-PCS; principal; 2016-12-30)
DX: L02.415 Cutaneous abscess of right lower limb (principal); B95.61 Methicillin susceptible Staphylococcus aureus infection as the cause of diseases classified elsewhere; L03.115 Cellulitis of right lower limb
CPT/HCPCS: 73590; 80048; 80053; 80202; 81001; 83605; 85025; 86140; 86403; 87040; 87070; 87147; 87186; 87205; 93971; 96365; J0295; J0875; J2543; J3370; J7040; J7060